=== PATIENT | male | born 1995 ===

== ENCOUNTER 2017-06-06 09:41 | Outpatient (CLI) | payer OTHER ==
[~2017-06-06] VITALS: Ht 152.4 cm; Wt 81.6 kg
== END 2017-06-06 10:00 | disposition home or self-care (01) ==
LOC: OFIC 805 09:41
DX: H70.12 Chronic mastoiditis, left ear (principal); H69.83 Other specified disorders of Eustachian tube, bilateral; H90.6 Mixed conductive and sensorineural hearing loss, bilateral; H71.12 Cholesteatoma of tympanum, left ear

== ENCOUNTER 2017-07-04 05:02 | Day surgery (SDC) | payer OTHER | END 2017-07-04 10:25 | disposition home or self-care (01) | LOC: CIR.AMB 05:02 | DX: H74.12 Adhesive left middle ear disease (principal); H65.492 Other chronic nonsuppurative otitis media, left ear ==

== ENCOUNTER 2017-07-11 09:28 | Outpatient (CLI) | payer OTHER ==
[~2017-07-11] VITALS: Ht 152.4 cm; Wt 81.6 kg
== END 2017-07-11 09:45 | disposition home or self-care (01) ==
LOC: OFIC 805 09:28
DX: H90.6 Mixed conductive and sensorineural hearing loss, bilateral (principal); H69.83 Other specified disorders of Eustachian tube, bilateral

== ENCOUNTER 2017-08-29 08:58 | Outpatient (CLI) | payer OTHER ==
[~2017-08-29] VITALS: Ht 152.4 cm; Wt 81.6 kg
== END 2017-08-29 09:15 | disposition home or self-care (01) ==
LOC: OFIC 805 08:58
DX: H69.83 Other specified disorders of Eustachian tube, bilateral (principal); H90.6 Mixed conductive and sensorineural hearing loss, bilateral

== ENCOUNTER 2017-11-28 09:53 | Outpatient (CLI) | payer OTHER ==
[~2017-11-28] VITALS: Ht 152.4 cm; Wt 81.6 kg
== END 2017-11-28 10:05 | disposition home or self-care (01) ==
LOC: OFIC 805 09:53
DX: H69.83 Other specified disorders of Eustachian tube, bilateral (principal); H74.12 Adhesive left middle ear disease; H90.6 Mixed conductive and sensorineural hearing loss, bilateral

== ENCOUNTER 2017-12-12 09:09 | Outpatient (CLI) | payer OTHER ==
[~2017-12-12] VITALS: Ht 152.4 cm; Wt 81.6 kg
== END 2017-12-12 09:25 | disposition home or self-care (01) ==
LOC: OFIC 805 09:09
DX: H74.12 Adhesive left middle ear disease (principal)

== ENCOUNTER 2022-12-27 06:58 | Day surgery (SDC) | payer OTHER ==
[2022-12-20 09:38] LABS: URINE APPEARANCE Clear; URINE BILIRRUBIN Negative (NEGATIVE); URINE BLOOD Negative; URINE COLOR Yellow; URINE GLUCOSE Negative (NEGATIVE); URINE LEUKOCYTE Negative; URINE NITRATE Negative; URINE PROTEIN Negative (NEGATIVE)
[2022-12-20 09:43] LABS: URINE BACTERIA 2.5 uL (0.0-1933); URINE EPITHELIAL CELLS 1.2 uL (0.0-38.8); URINE RBC 0.5 uL (0.0-20.8)
[2022-12-20 10:03] LABS: ALBUMIN 3.5 gm/dL (3.4-5.0); CREATININE SERUM 0.86 mg/dL (0.70-1.30); GFR 105.14; PHOSPHOROUS 2.8 mg/dL (2.5-4.9); POTASSIUM 3.85 mEq/L (3.5-5.1)
[2022-12-20 12:15] LABS: INR 1.02; PARTIAL THROMBOPLASTIN TIME 27.4 SECONDS (22.0-34.0); PROTHROMBIN TIME 10.7 SECONDS (9.0-11.5)
[2022-12-20 14:14] LABS: HEMATOCRIT 43.5 % (39.0-48.0); HEMOGLOBIN 13.7 g/dL (13-16.00); MEAN CELL VOLUME 77.6 fL (80.0-100.00); MEAN CORPUSCULAR HEMOGLOBIN 24.4 pg (27.00-32.0); RED BLOOD COUNT 5.61 M/uL (4.00-6.00)
[2022-12-20 14:15] LABS: MEAN CORPUSCULAR HGB CONC 31.4 g/dl (32.0-36.0); PLATELET COUNT 141 K/uL (150-450); RED CELL DISTRIBUTION WIDTH 13.8 % (11.5-14.5)
[~2022-12-27] VITALS: Ht 172.7 cm; Wt 86.2 kg
[2022-12-27] MEDS ORDERED: CIPROFLOXACIN2.5 ML OTIC (13:52)
[2022-12-27] MEDS ORDERED: CEPHALEXIN500 MG PO (13:53)
== END 2022-12-27 16:45 | disposition home or self-care (01) ==
LOC: CIR.AMB 06:58
PROVIDERS: Internal Medicine; ATTEND Otolaryngology Otology & Neurotology
DX: H71.02 Cholesteatoma of attic, left ear (principal); H72.12 Attic perforation of tympanic membrane, left ear; H90.12 Conductive hearing loss, unilateral, left ear, with unrestricted hearing on the contralateral side; Z20.822 Contact with and (suspected) exposure to COVID-19